=== PATIENT | female | born 1935 | race Caucasian/White ===

== ENCOUNTER → 2023-08-17 | Outpatient (CLI) | payer OTHER ==
[~2023-08-17] MED LIST: GABA300 PO; LISI20 PO; ROSUVASTATIN CA40 MG PO
[2023-08-17 13:12] LABS: BASOPHILS ABSOLUTE AUTO 0.04 K/mm3 (0.00-0.23); BASOPHILS PERCENT AUTO 0 % (0-2); EOSINOPHILS ABSOLUTE AUTO 0.04 K/mm3 (0.00-0.68); EOSINOPHILS PERCENT AUTO 0 % (0-6); Hematocrit 37.9 % (33.0-51.0); Hemoglobin 12.8 g/dL (11.5-16.0); IMMATURE GRAN ABSOLUTE AUTO 0.04 K/mm3 (0.00-0.10); IMMATURE GRAN PERCENT AUTO 0 % (0-1); LYMPHOCYTES ABSOLUTE AUTO 1.91 K/mm3 (0.84-5.20); LYMPHOCYTES PERCENT AUTO 17 % (21-46); MONOCYTES ABSOLUTE AUTO 0.74 K/mm3 (0.16-1.47); MONOCYTES PERCENT AUTO 7 % (4-13); Mean Corpuscular HGB 29.6 pg (26.0-34.0); Mean Corpuscular HGB Conc 33.8 g/dL (31.5-36.5); Mean Corpuscular Volume 88 fL (80-100); Mean Platelet Volume 10.6 fL (9.1-12.4); NEUTROPHILS ABSOLUTE AUTO 8.39 K/mm3 (1.96-9.15); NEUTROPHILS PERCENT AUTO 75 % (41-73); Platelet Count 251 K/mm3 (150-400); RDW Coefficient Variation 14.3 % (11.7-14.2); RDW Standard Deviation 45.8 fL (35.1-46.3); Red Blood Cell Count 4.32 M/mm3 (3.80-5.20); White Blood Cell Count 11.16 K/mm3 (4.00-11.30)
[2023-08-17 13:33] LABS: Albumin, Blood 2.8 g/dL (3.4-5.0); Albumin/Globulin Ratio 0.7 (0.8-1.8); Bilirubin, Total 0.4 mg/dL (0.1-1.0); Bun/Creatinine Ratio 26.1 (12.0-20.0); Calcium, Blood 8.2 mg/dL (8.5-10.1); Creatinine, Blood 1.38 mg/dL (0.40-1.00); Globulin, Blood 4.2 g/dL (2.2-4.0); Thyroid Stimulating Hormone 2.955 uIU/mL (0.360-4.800)
== END | disposition home or self-care (01) ==
LOC: LAB SHORT 13:08 → LAB 13:08
PROVIDERS: Physician Assistant Medical
DX: N39.0 Urinary tract infection, site not specified (principal); R53.83 Other fatigue; R00.2 Palpitations
CPT/HCPCS: 80053; 84443; 84484; 85025; 87077; 87086; 87186

== ENCOUNTER 2024-11-12 17:11 | Inpatient (IN) | payer OTHER ==
[~2024-11-12] VITALS: Ht 152.4 cm; Wt 45.4 kg
[~2024-11-12 17:11] MED LIST changes: +AMLODIPINE BESYL5 MG PO; +ATROPINE S0.1 MG/1 M SL; +CELEXA10 MG PO; +LORA.5 PO; +MORP20L SL; +PREGABALIN25 MG PO; +TRANSDERM-SCOP1 EA11 TD
[2024-11-12 17:43] LABS: BASOPHILS ABSOLUTE AUTO 0.04 K/mm3 (0.00-0.23); BASOPHILS PERCENT AUTO 0 % (0-2); EOSINOPHILS ABSOLUTE AUTO 0.05 K/mm3 (0.00-0.68); EOSINOPHILS PERCENT AUTO 1 % (0-6); Hematocrit 31.3 % (33.0-51.0); Hemoglobin 9.9 g/dL (11.5-16.0); IMMATURE GRAN ABSOLUTE AUTO 0.03 K/mm3 (0.00-0.10); IMMATURE GRAN PERCENT AUTO 0 % (0-1); LYMPHOCYTES ABSOLUTE AUTO 1.68 K/mm3 (0.84-5.20); LYMPHOCYTES PERCENT AUTO 16 % (21-46); MONOCYTES ABSOLUTE AUTO 0.97 K/mm3 (0.16-1.47); MONOCYTES PERCENT AUTO 9 % (4-13); Mean Corpuscular HGB 31.7 pg (26.0-34.0); Mean Corpuscular HGB Conc 31.6 g/dL (31.5-36.5); Mean Corpuscular Volume 100 fL (80-100); Mean Platelet Volume 11.1 fL (9.1-12.4); NEUTROPHILS PERCENT AUTO 73 % (41-73); Platelet Count 244 K/mm3 (150-400); RDW Coefficient Variation 15.3 % (11.7-14.2); RDW Standard Deviation 56.7 fL (35.1-46.3); Red Blood Cell Count 3.12 M/mm3 (3.80-5.20); White Blood Cell Count 10.37 K/mm3 (4.00-11.30)
[2024-11-12 18:12] LABS: Albumin, Blood 2.5 g/dL (3.4-5.0); Albumin/Globulin Ratio 0.6 (0.8-1.8); Bilirubin, Total 0.3 mg/dL (0.1-1.0); Bun/Creatinine Ratio 40.5 (12.0-20.0); Creatinine, Blood 0.86 mg/dL (0.40-1.00); Potassium, Blood 4.4 mmol/L (3.5-5.5); Total Protein, Blood 6.5 g/dL (6.4-8.2)
[2024-11-12] MEDS ORDERED: NS 1,000 ML IV SCH (18:20)
[2024-11-12] MEDS ORDERED: Morphine Sulfate 4 MG/1 ML Injection IV ONE (18:45)
[2024-11-12] MEDS ORDERED: PREG50 PO (19:34)
[2024-11-12] MEDS ORDERED: FURO20 PO (19:35)
[2024-11-12] MEDS ORDERED: RISP.25 PO (19:35)
[2024-11-12] MEDS ORDERED: ACETAMINOPHEN500 MG PO (19:35)
[2024-11-12] MEDS ORDERED: LIDO700A20 TOP (19:35)
[2024-11-12] MEDS ORDERED: REXULTI2 MG PO (19:35)
[2024-11-12] MEDS ORDERED: Aspirin 325 MG Tab PO ONE (20:50)
[2024-11-12] MEDS ORDERED: Droperidol 5 mg/2 ml Vial IV ONE (21:00)
[2024-11-12] MEDS ORDERED: LORazepam 2 MG/ML 1ML Injection IV ONE (21:35)
[2024-11-12 21:39] LABS: Anti-Xa UFH, PHA Monitoring <0.10 IU/mL; International Normalized Ratio 0.92; Prothrombin Time Results 9.9 Sec (9.7-11.5)
[2024-11-12] MEDS ORDERED: Heparin Sodium,Porcine/0.5 NS 500 ML IV SCH (21:50)
[2024-11-12] MEDS ORDERED: Heparin Sodium 5000 Units/ML 1ML MDV IV ONE (21:50)
[2024-11-12] MEDS ORDERED: FLU VACC TS2024-25(6MOS UP)/PF 45 MCG/0.5 ML SYRINGE IM ONE (22:10)
--- NOTE | 2024-11-13 00:45 | NUR ---
ADMIT NOTE 89 YR OLD FEMALE ADMITTED TO FLOOR FROM THE ED WITH DX OF CHEST PAIN AND [place] [id number]. ED RN REPORTED PT HAD NSTEMI AND WAS DESTINED TO GO TO HOSPICE IN THE AM BUT WAS PUT ON A HEPARIN DRIP FOR TONIGHT.
[2024-11-13 00:54] VITALS: BP 143/64
--- NOTE | 2024-11-13 01:20 | NUR ---
PT EYES HALF OPEN, DOES NOT RESPOND TO VERBAL STIMULI. NOTE BRUISES; APPARENT CELLULITIS OF LEFT FOOT AREA AND OPEN SORE OF BUTTOCK - SEE PICS IN CHART. DRESSINGS APPLIED. HOB ELEVATED. CALL LIGHT IN REACH. EarDish IN PLACE. WILL MONITOR. NO NOTED PHYSICAL SIGNS OF DISTRESS. VSS.
[2024-11-13] MEDS ORDERED: ATROPINE SULFATE2 M1 SL (01:21)
[2024-11-13] MEDS ORDERED: TRANSDERM-SCOP1 EA10 TD (01:23)
[2024-11-13] MEDS ORDERED: BUSPIRONE HCL7.5 M6 PO (01:25)
[2024-11-13] MEDS ORDERED: LORazepam 0.5 MG Tab PO PRN (02:30)
[2024-11-13] MEDS ORDERED: Atropine Sulfate 1% Opth Soln 2ML BTL SL PRN (02:30)
[2024-11-13] MEDS ORDERED: Acetaminophen 500 MG Tab PO PRN (02:30)
[2024-11-13] MEDS ORDERED: Scopolamine Hydrobromide Patch TOP PRN (02:30)
--- NOTE | 2024-11-13 03:31 | NUR ---
JACQUARD CARD LACER SUMMARY 89 YR OLD FEMALE ADMITTED TO FLOOR FROM THE ED EARLIER THIS SHIFT WITH ELEVATED TROPS ([id number]). ED RN REPORTED NSTEMI, PT WAS PLACED ON HEPARIN DRIP AND SENT TO MEDICAL FLOOR. ED RN REPORTED PLAN FOR PT TO BE DISCHARGED TO HOSPICE IN THE AM. PT ARRIVED WITH EYES PARTIALLY OPEN, DID NOT, AND HAS NOT, RESPONDED TO VERBAL STIMULI. VSS. REPOSITIONED FOR COMFORT, HEAD ELEVATED. ON ROOM AIR. HAS BEEN RESTING QUIETLY WITH FEW INTERRUPTIONS. 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 HEPARIN DRIP CONTINUES THROUGH NOCT. CALL LIGHT IN REACH. RAILS UP X 2 AND BED IN LOW POSITION FOR SAFETY. WILL CONT TO MONITOR
[2024-11-13 04:21] VITALS: BP 122/58
[2024-11-13] MEDS ORDERED: Clarify Drug Order XX ONE (05:30)
--- NOTE | 2024-11-13 05:39 | NUR ---
AWAKE, VERBALLY RESPONDS TO QUESTIONS ASKED. ALERT AND ORINETED. REQUESTED AND ASSISTED UP IN RECLINED. WATCHING TV. RESPS EVEN. STATES IS "OK". CALL LIGHT IN REACH. HEPARIN DRIP INFUSING. WILL CONT TO MONITOR
[2024-11-13 07:22] VITALS: BP 134/67
--- NOTE | 2024-11-13 07:37 | NUR ---
PATIENT DISLODGED IV WITH HEPARIN RUNNING AND TAKING OFF TELE LEADS. CALL TO DR PORTER: OKAY TO NICK.
[2024-11-13] MEDS ORDERED: Pregabalin 50 MG Capsule PO SCH (09:00)
[2024-11-13] MEDS ORDERED: Furosemide 20 MG Tab PO SCH (09:00)
[2024-11-13] MEDS ORDERED: Lidocaine 4% 1 Patch TOP SCH (09:00)
[2024-11-13] MEDS ORDERED: RisperiDONE 0.25 MG Tab PO SCH (09:00)
[2024-11-13] MEDS ORDERED: BusPIRone HCl 5 MG Tab PO SCH (09:00)
[2024-11-13] MEDS ORDERED: ARIPiprazole 10 MG Tab PO SCH (09:00)
--- NOTE | 2024-11-13 12:05 | NUR ---
Pt being placed on comfort care, will return to [facility] with [facility]. She is lying back in hospital bed, conversing with relative at this time. Denies chest pain or SOB.
[2024-11-13] MEDS ORDERED: Haloperidol Lactate 2 MG/ML Conc 1ML Dose PO PRN (12:10)
[2024-11-13] MEDS ORDERED: Morphine Sulfate 20 MG/1ML 1 ML Oral Syringe SL PRN (12:25)
--- NOTE | 2024-11-13 15:49 | NUR ---
PT NOTED TO OBTAIN A SKIN TEAR TO L HAND WHILE STAFF WAS ATTEMPTING TO CHANGE PT. PT NOTED TO TRY TO SLAP CHECK OUT CASHIER IN FACE AND MISSED CHECK OUT CASHIER AND CAUGHT HER HAND ON SIDE RAIL. CHARGE NURSE NOTIFED PICTURE PLACED IN CHART. SKIN APPROXIMATED MUCH HAS PT WOULD ALLOW. MEPIETL ONE APPLIED TO AREA.
--- NOTE | 2024-11-13 16:30 | NUR ---
Case Conference: Spoke with pt's [facility] studio owner Jyoti as well as pt's daughter EL Dill by phone. She did indicate comfort care moving forward with [facility]. CM aware. Pt may not return until Friday as there is genuine concern she could be at risk for another DE at home without having the support of hospice. Given her cardiac status, same day admit would be preferable.
--- NOTE | 2024-11-13 17:11 | NUR ---
SHIFT SUMMARY PT TRANSFERED FROM ROOM 325 THIS SHIFT TO ROOM 350. PT NOTED TO BE IMPULSIVE THIS SHIFT. PT NOTED TO HIT, KICK, AND SCRATCH STAFF THIS SHIFT. PT WAS TRANSFERED TO COMFORT CARE THIS SHIFT. AND PLANS TO GO BACK TO [facility] [place] ON HOSPICE. CASE MANAGAEMENT WILL REASSES ON FRIDAY THE HOSPICE AGENCY IS NOT AVAILABLE ON THE WEEKENDS FOR NEW PT. PT NOTED TO HAVE EDEMA TO BLE AND WEEPING TO TOP OF R FOOT AND BACK OF R LEG. DSG WAS IN PLACE TO ASSIST WITH DRAINAGE BUT PT IS UNCOMPLAINT WITH KEEPING IT ON AND KEEPS TAKING IT OFF EVEN WITH REDIRECTION. PT NOTED TO HAVE MEPLEX TO COCCYX. AND A SKIN TEAR TO L HAND. PICTURES IN CHART.
--- NOTE | 2024-11-14 05:12 | NUR ---
SHIFT SUMMARY PT IS ALERT AND ORIENTED TO SELF. PT IS IMPULSIVE AND DIFFICULT AT TIMES TO REDIRECT, BED ALARM ON. PT RECIEVED X1 DOSE OF ATIVAN EARLY THIS EVENING PER JAN. NO ACUTE CHANGES THROUGHOUT THIS SHIFT. PT SLEPT THROUGHOUT THE NIGHT.
[2024-11-14 06:32] LABS: BASOPHILS ABSOLUTE AUTO 0.02 K/mm3 (0.00-0.23); BASOPHILS PERCENT AUTO 0 % (0-2); EOSINOPHILS ABSOLUTE AUTO 0.02 K/mm3 (0.00-0.68); EOSINOPHILS PERCENT AUTO 0 % (0-6); Hematocrit 30.1 % (33.0-51.0); Hemoglobin 9.7 g/dL (11.5-16.0); IMMATURE GRAN ABSOLUTE AUTO 0.02 K/mm3 (0.00-0.10); IMMATURE GRAN PERCENT AUTO 0 % (0-1); LYMPHOCYTES PERCENT AUTO 9 % (21-46); MONOCYTES PERCENT AUTO 7 % (4-13); Mean Corpuscular HGB 31.9 pg (26.0-34.0); Mean Corpuscular HGB Conc 32.2 g/dL (31.5-36.5); Mean Corpuscular Volume 99 fL (80-100); Mean Platelet Volume 11.2 fL (9.1-12.4); NEUTROPHILS ABSOLUTE AUTO 7.03 K/mm3 (1.96-9.15); NEUTROPHILS PERCENT AUTO 83 % (41-73); Platelet Count 215 K/mm3 (150-400); RDW Coefficient Variation 15.4 % (11.7-14.2); RDW Standard Deviation 55.6 fL (35.1-46.3); Red Blood Cell Count 3.04 M/mm3 (3.80-5.20); White Blood Cell Count 8.49 K/mm3 (4.00-11.30)
--- NOTE | 2024-11-14 17:29 | NUR ---
SHIFT SUMMARY PT CONT WITH COMFORT CARE WITH NO ACUTE CHANGES NOTED. PLAN IS FOR PT TO DC TOMORROW BACK TO [facility] WITH HOSPICE. WILL GET A TRANSFER TIME TOMORROW ONCE HOSPICE GETS SUPPLIES TO [facility].
[2024-11-14 20:51] VITALS: BP 136/60
--- NOTE | 2024-11-15 05:03 | NUR ---
Pt admitted here for CP, and elevated troponin, and abnormal EKG. Pt transitioned to comfort care. PO meds taken for comfort and for behavior issues in past, will take with chocolate pudding, whole. incontinent of B&B, and understands simple instructions even though she is only oriented to self. did not attempt to get OOB this shift. looking for placement in a hospice type foster home.
--- NOTE | 2024-11-15 11:32 | NUR ---
PT AT 1123 VERIFIED WITH Temitope FORD. FAMILY PRESENT IN ROOM. PHYSICIAN NOTIFED AT 1128. CHARGE NURSE NOTIFIED. CASE MANAGEMENT NOTIFIED.
--- NOTE | 2024-11-15 12:08 | NUR ---
NOTIFIED BY BEDSIDE NURSE OF PT'S PASSING. THIS PC RN WAS SECONDARY RN FOR PRONOUNCEMENT. TOD 11/15/24 @ 1123. THIS PC RN PROVIDED ORAL CARE. WASHED PT'S FACE AND HANDS. PT'S AUNT ANDREA AT BEDSIDE. ANDREA NOTIFIED PT'S SON, TYRONE. TYRONE ARRIVED TO PT'S ROOM. HE IS TEARFUL UPON ENTERING THE ROOM. THERAPUTIC LISTENING PROVIDED. CHAPLIAN REQUESTED. FAMILY'S HOME OF CHOICE IS [facility]. COMMUNITY SERVICE SPECIALIST NOTIFIED OF CHOICE.
--- NOTE | 2024-11-15 12:11 | NUR ---
Spiritual care visit conducted. I am across the hallway from the patient's room and I am told that the patient just unexpectedly. Patient's Aunt and son are bedside and grieving appropriately. I conducted a life review of the patient and provided grief support and prayer. Family responded well and showed signs of being comforted.
== END 2024-11-15 11:23 ==
LOC: ER 17:11 → ERHOLD 22:10 → MEDS 22:10
PROVIDERS: Emergency Medicine; ADMIT Student in an Organized Health Care Education/Training Program
DX: I21.19 ST elevation (STEMI) myocardial infarction involving other coronary artery of inferior wall (principal); G93.41 Metabolic encephalopathy; Z66 Do not resuscitate; Z51.5 Encounter for palliative care; I10 Essential (primary) hypertension; E78.5 Hyperlipidemia, unspecified; E11.9 Type 2 diabetes mellitus without complications; F03.90 Unspecified dementia, unspecified severity, without behavioral disturbance, psychotic disturbance, mood disturbance, and anxiety; I87.2 Venous insufficiency (chronic) (peripheral); I71.40 Abdominal aortic aneurysm, without rupture, unspecified; Z90.49 Acquired absence of other specified parts of digestive tract; Z87.891 Personal history of nicotine dependence; Z88.0 Allergy status to penicillin; Z79.899 Other long term (current) drug therapy
CPT/HCPCS: 36415; 71046; 80053; 83690; 84484; 85025; 85520; 85610; 85730; 93005; 93010; 96361; 96374; 96375; 99285-25; A9270; J1644; J1790; J2060; J2270; J7030